=== PATIENT | female | born 1945 | race Asian ===

== ENCOUNTER 2017-07-07 14:06 | Emergency (ER) | payer BC, MEDICARE ==
[~2017-07-07] VITALS: Ht 152.4 cm; Wt 54.4 kg
--- NOTE | 2017-07-07 15:04 | NUR ---
Patient discharged to home in stable conditon. Written and verbal after care instructions given. Patient verbalizes understanding of instructions.pt walks in steady gait. pt accompanied by daughter who is a pharmacist. daughter said will cme back with low threshhold. pt says feels better, deneisany headache or dizziness at this time.
[2017-07-07 15:07] VITALS: BP 139/71
== END 2017-07-07 15:11 | disposition home or self-care (01) ==
LOC: ER 14:07
DX: G45.9 Transient cerebral ischemic attack, unspecified (principal)
CPT/HCPCS: A4663